=== PATIENT | female | born 2005 | race Caucasian/White ===

== ENCOUNTER 2023-12-12 16:39 | Emergency (ER) | payer OTHER, SELFPAY ==
[2023-12-12 16:41] VITALS: BP 139/90
--- NOTE | 2023-12-12 18:04 | ED.GENMED ---
History of Present Illness
General
Chief Complaint: Fever
Source: patient
Exam Limitations: none
Time Seen by Provider: 12/12/23 17:37
Nursing documentation reviewed up to this point in time: agreed with
Travel History
Have you had any contact with someone who has COVID-19?: No
Do you have any symptoms of coronavirus? Fever > 100 degrees, chills, cough, shortness of breath, sore throat, loss of taste or smell, muscle aches, or headache?: No
History of Present Illness
History of Present Illness:
Patient with history of congenital asplenia, presents to ED secondary to fever, sore throat, and intermittent cough for the past 3 days. Patient has recently returned from college. Denies headache. Denies neck pain. Denies chest pain. Denies
nausea, vomiting, or diarrhea. Denies rash. Denies loss of appetite. Patient states that multiple friends in college have had recent URI symptoms.
Past History
Past History
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
Social History
Tobacco: Non-smoker
Alcohol: None
Personal: Single
Living: with family
Employment: Student
Review of Systems
Review of Systems
Allergies reviewed?: Yes
All Other Systems: ROS reviewed and negative except as documented in HPI and ROS
Constitutional: Reports fever
EENT: Reports sore throat
Respiratory: Reports cough; Denies trouble breathing
Cardiac: Reports no symptoms
ABD/GI: Reports no symptoms
Musculoskeletal: Reports no symptoms
Skin: Reports no symptoms
Neurological: Reports no symptoms; Denies headache
Phy Exam
Physical Exam
Physical Exam:
Physical Exam
General: no apparent distress, not acutely ill. afebrile.
Head: nc/at. eomi
Neck: supple. no meningeal signs. normal posterior pharynx
Heart: s1/s2 regular rate and rhythm, no murmur. equal radial pulses.
Lungs: no acute respiratory distress. clear bilaterally
Abdomen: normal bowel sounds. not tender.
Neuro: alert and oriented. no focal neurological deficits
Skin: no rash
Psychiatric: well kept. interactive and cooperative
Extremities: no edema. no calf tenderness.
Course
Orders/Labs/Results
Orders:
12/12/23 17:40
12/12/23 17:40
Vital Signs
Initial and Last Documented VS:
Initial Vital Signs
Temp Pulse Resp BP Pulse Ox
99.1 F 85 20 139/90 100
12/12/23 16:41 12/12/23 16:41 12/12/23 16:41 12/12/23 16:41 12/12/23 16:41
Last Documented Vital Signs
Temp Pulse Resp BP Pulse Ox
99.1 F 85 20 139/90 100
12/12/23 16:41 12/12/23 16:41 12/12/23 16:41 12/12/23 16:41 12/12/23 16:41
MDM/Problems Addressed
MDM/Problems Addressed:
Patient with likely viral illness, but otherwise appears well with stable vital signs. However, in light of patient's lack of spleen, patient is at high risk for potential worsening symptoms, including bacteremia. As such, discussed blood work
along with COVID/flu swab/throat swab. However, patient does not wish to receive any further studies in ED. Patient requesting be discharged home and will return to ED with worsening symptoms. Patient is otherwise afebrile, hemodynamically
stable, and nontoxic-appearing, at time of discharge to the care of her father.
*Critical Care Note
Total Time (30-74mins, 75-104mins- exclusive of procedures): Not Applicable
ED Attending Note
-
Portions of this chart may have been created with voice recognition software.� Occasional wrong word or��sound alike� substitutions may have occurred due to the inherent limitations of voice recognition software.
Discharge Plan
Departure
Patient Disposition: Home (Routine Discharge)
Date of Disposition: 12/12/23
Time of Disposition: 18:04
Patient with high blood pressure during this ER visit?: Yes
Condition: Good
Discharge Problem:
Fever
Instructions: Fever, Adult (DC)
Prescriptions:
No Action
multivitamin 1 EACH tablet
1 ea PO DAILY
levofloxacin 500 MG tablet
500 mg PO DAILY Qty: 5 0RF
prednisone 20 MG tablet
20 mg PO BID Qty: 10 0RF
famotidine 20 MG tablet
20 mg PO BID Qty: 10 0RF
levofloxacin 250 MG tablet
250 mg PO DAILY Qty: 3 0RF
levofloxacin 250 mg tablet
500 mg PO DAILY 3 Days Qty: 6 0RF
Referrals:
Jessie Rasmussen MD [Family Provider] -
Activity Restrictions/Additional Instructions:
As discussed, please follow up with your primary care physician for continual evaluation and treatment. Please return to ED with worsening symptoms.
Interventions
Interventions:
*Risk Screen - Suicide Last Done: 12/12/23 16:41
*General Assessment Last Done: 12/12/23 16:41
*Neglect/Abuse Screening Last Done: 12/12/23 16:41
*Nursing Disposition Last Done: 12/12/23 18:09
ED- Neurological Assessment Last Done: 12/12/23 18:03
ED-Skin Assessment Last Done: 12/12/23 18:03
Discharge Date and Time
Discharge Date/Time: 12/12/23 18:09
Print Language: URDU
== END 2023-12-12 18:09 | disposition home or self-care (01) ==
LOC: EMR 16:39
PROVIDERS: EMERGENCY PHYSICIAN Emergency Medicine; FAMILY PHYSICIAN Family Medicine
DX: R50.9 Fever, unspecified (principal); J02.9 Acute pharyngitis, unspecified; R05.9 Cough, unspecified; R03.0 Elevated blood-pressure reading, without diagnosis of hypertension; Q89.01 Asplenia (congenital); R01.1 Cardiac murmur, unspecified; J45.909 Unspecified asthma, uncomplicated; Z86.61 Personal history of infections of the central nervous system; Z88.1 Allergy status to other antibiotic agents; Z88.0 Allergy status to penicillin
CPT/HCPCS: 99282